=== PATIENT | female | born 1970 | race Caucasian/White ===

== ENCOUNTER → 2018-10-20 11:04 | Outpatient (CLI) | payer OTHER, SELFPAY ==
--- NOTE | 2018-10-20 10:20 | EMB_PTH ---
PATIENT: JESUSITA LINDQUIST LOC: [facility] U#:[id number] AGE/SX: 55/F ROOM: RE10/20/[address]: Dr. Marissa Houser MD : 1970 BED: DIS: SPEC #: [id number] RECD: 10/20/18 12:40 STATUS: AMA DAVI #: [id number] LYNN: 10/20/18 10:[address]: Marissa Bailey DEPT: SURGICAL PATHOLOGY RECD BY: Rolando Burr Tissues: Endometrium, NOS Procedures: Surgery Specimen Level IV HEADER OPERATION: Endometrial biopsy PRE-OP DIAGNOSIS: N92.0 Pap 10/20/18, LMP 10/04/18 TISSUE SUBMITTED: Endometrial biopsy MICROSCOPIC DIAGNOSIS Endometrium, biopsy: Disordered proliferative endometrium. AM:rg 10/21/18 MICROSCOPIC DESCRIPTION Slides are reviewed. GROSS DESCRIPTION Received is one container labeled with the patient's name and not further designated. The specimen consists of multiple irregular and elongated fragments of dark red-bailey soft tissue that in aggregate measure 2.5 x 2 x 0.2 cm. The specimen is totally submitted in one cassette. / AM:kike 10/20/18 TC:5 [facility]: [id number]
[2018-10-20 12:55] LABS: Hematocrit 35.3 % (37-47); Mean Corp Hgb Conc 28.3 g/gl (32-36); Mean Corpuscular Hgb 24.2 pg (27.0-32.0); Mean Corpuscular Volume 85.3 fL (81-99); Mean Platelet Vol. 10.2 fl (6.2-12.0); Platelet Count 355 K/mm3 (150-450); RBC Distribution Width CV 21.9 % (11.6-14.6); RBC Distribution Width SD 66.4 fl (35.1-43.9); Red Blood Count 4.14 M/mm3 (4.2-5.4); White Blood Count 7.4 K/mm3 (4.4-11.0)
[2018-10-20 13:58] LABS: Scan Indicated on CBC? Y/N YES- FLAGS NOTED
[2018-10-22 12:05] LABS: HPV APTIMA, High Risk Negative (Negative)
== END ==
PROVIDERS: Visit Provider Obstetrics & Gynecology
DX: Z12.4 Encounter for screening for malignant neoplasm of cervix (principal); N92.0 Excessive and frequent menstruation with regular cycle
CPT/HCPCS: 36415; 85027; 87624; 88175; 88305; G0145

== ENCOUNTER 2018-12-11 13:49 | Day surgery (SDC) | payer OTHER, SELFPAY ==
[2018-12-09 17:36] LABS: Hematocrit 33.5 % (37-47); Hemoglobin 10.5 g/dl (12.0-15.0); Mean Corp Hgb Conc 31.3 g/gl (32-36); Mean Corpuscular Hgb 28.1 pg (27.0-32.0); Mean Corpuscular Volume 89.6 fL (81-99); Mean Platelet Vol. 9.5 fl (6.2-12.0); Platelet Count 356 K/mm3 (150-450); RBC Distribution Width CV 14.9 % (11.6-14.6); RBC Distribution Width SD 46.6 fl (35.1-43.9); Red Blood Count 3.74 M/mm3 (4.2-5.4)
[2018-12-09 17:37] LABS: Scan Indicated on CBC? Y/N NO
[2018-12-09 17:44] LABS: Prothrombin Time (Protime)PT. 13.4 SECONDS (11.7-14.9)
[2018-12-09 17:45] LABS: Partial Thromboplast Time 31.6 Seconds (24.1-36.2)
[2018-12-11] VITALS (7 sets, daily range): BP systolic 135–142; BP diastolic 43–79; PULSE 67–97; RESP 16–18; TEMP 36.8–37.5; O2SAT 98–100; BMI 35.1
--- NOTE | 2018-12-11 | EMB_PTH ---
PATIENT: JESUSITA LINDQUIST LOC: [facility] U#:[id number] AGE/SX: 48/F ROOM: RE12/11/[address]: Dr. Marissa Houser MD : 1970 BED: DIS: 12/11/2018 SPEC #: [id number] RECD: 12/12/18 09:07 STATUS: AMA DAVI #: [id number] LYNN: 12/11/18 00:[address]: Marissa Bailey DEPT: SURGICAL PATHOLOGY RECD BY: Kleber Ramirez ENTERED: 12/12/18 09:07 SP TYPE: ENDOM BX/C LINDSEY DR: No Primary Care Phys Tissues: Endometrium, NOS Procedures: Surgery Specimen Level IV HEADER OPERATION: Hysteroscopy, D & C, Symphion and hydrothermal ablation PRE-OP DIAGNOSIS: Excessive and frequent menstruation with regular cycle; hypertrophy of uterus and secondary dysmenorrhea TISSUE SUBMITTED: Uterine polyps and fibroids and endometrial curettings MICROSCOPIC DIAGNOSIS Uterine polyps and fibroids and endometrial curettings: Mildly disordered proliferative endometrium. Fragments of myometrium. Mild chronic endometritis. Fragments of benign ecto- and endocervical mucosa with chronic inflammation and squamous metaplasia. AYSHA:kike 12/15/18 MICROSCOPIC DESCRIPTION Slides are reviewed. GROSS DESCRIPTION Received in fixative is one container labeled with the patient's name and designated uterine polyps and fibroids and endometrial curettings. The specimen consists of multiple fragments of hemorrhagic soft tissue mixed with blood clot that in aggregate measure 7.5 x 3 x 0.3 cm. The entire specimen is submitted in three cassettes. / AYSHA:kike 12/12/18 TC:5 CPT: 02483
--- NOTE | 2018-12-11 00:13 | HP.PCM_ITS ---
History and Physical Date of Admission: 12/11/18 HISTORY OF PRESENT ILLNESS: On 12/09/2018, Ramya Hughes, a 48 year old female 2 0 1 0 2, presented for: -- Pre-Op -- Ramya is here today for her pre op appointment. Patient is scheduled for HS D&C ablation 12/11/2018. Patient states that she has received her PAT phone call from [facility]. Patient is planning to have labs done today after appointment in this office. Patient states that she has had menses since last appointment this cycle did last longer the previous menses. Consents reviewed with patient and signed. jlb as above. hx menorrhagia with iron deficiency anemia scheduled for hysteroscopy, dilation and curettage with endometrial ablation. shm ALLERGIES: Demerol, Rash, itching MEDICATIONS HISTORY: REVIEW OF SYSTEMS: GENERAL - Denies fever, or chills SKIN - Denies skin changes EYES - wears eye glasses and sometimes EARS - Denies difficulty hearing NOSE - Denies nasal congestion or bleeding MOUTH - Denies sore throat or difficulty swallowing NECK - Denies pain or swelling RESPIRATORY - Denies shortness of breath or wheezing CARDIOVASCULAR - Denies palpitations or chest pain GASTROINTESTINAL - Denies nausea, vomiting, diarrhea, constipation GENITOURINARY - Denies dysuria, frequency of urination, incontinence of urine MUSCULOSKELETAL - Denies joint or muscle pain NEUROLOGICAL - Denies localized numbness or weakness PSYCHIATRIC - Denies depression or anxiety ENDOCRINE - Denies heat or cold intolerance, weight loss or gain HEMATO-IMMUNOLOGIC - Denies excesive bleeding with cuts PAST HISTORY: Breast/Ovarian/Colon Cancers - adopted Infections - Chicken pox Illnesses - anemia, heart murmur Accidents - None History of Abnormal PAPS - Denies Hospitalizations - Childbirth and see surgery last pap approximately 2001; SURGICAL HISTORY: 1. 1989 2. repeat with tubal 1991 3. termination of MENSTRUAL HISTORY: LMP Known?- DefiniteAmount/Duration - 6-7 days, Regularity - Regular, Frequency - monthly days, LMP - 11/30/18, Age Onset Menarche - 11 PAST PREGNANCIES: Total Pregnancies - 3; Full Term Pregnancies - 2; Premature - 0; Abortions, Induced - 1; Abortions, Spontaneous - 0; Ectopics - 0; Multiple Births - 0; Living Children - 2 FAMILY HISTORY: MaternalGrandparent - Type 2 Diabetes; MaternalGrandparent - Anemia; SOCIAL HISTORY: Alcohol Use - drinks occasionally Smoking - used to smoke but quit and in 1990 Diet - no special diet Lifestyle - Exercise - none Seat Belt Use - always Employer - [employer] Illicit Drug Use - denies use of street drugs Sexual Activity - Residence - owns a home Spouse-Sig Other Name - Kevyn Spouse-Sig Other Occupation - self employed Children Name(s) - Sandhya Godfrey Control - Prior Tubal BP- 128/84 Sitting, Right arm, large cuff Temp- 98.2 Taken Orally Weight- 200.00 lbs Height- 62.75 inch BMI:35.79 CONSTITUTIONAL - NAD, well nourished, and well developed SKIN - No rash, lesions, or ulcers HEENT - normocephalic, atraumatic, sclerae anicteric LUNGS - normal respiratory rate and rhythm CARDIAC - Regular rate and rhythm without rubs, murmurs, or gallops ABDOMEN - Without hepatosplenomegaly, distention, masses, rebound, or guarding; normal bowel sounds; no hernias EXTREMITIES - No edema or calf tenderness NEUROLOGICAL - normal gait, normal balance, normal motor PSYCHIATRIC - A and O to time, place, person, mood and affect Laboratory Tests 12/09/18 12/09/18 12/09/18 Range/Units 17:23 17:23 17:23 WBC 7.0 (4.4-11.0) K/mm3 RBC 3.74 L (4.2-5.4) M/mm3 Hgb 10.5 L (12.0-15.0) g/dl Hct 33.5 L (37-47) % MCV 89.6 (81-99) fL MCH 28.1 (27.0-32.0) pg MCHC 31.3 L (32-36) g/gl RDW 14.9 H (11.6-14.6) % RDW Differential 46.6 H (35.1-43.9) fl Plt Count 356 (150-450) K/mm3 MPV 9.5 (6.2-12.0) fl PT 13.4 (11.7-14.9) SECONDS INR 1.0 APTT 31.6 (24.1-36.2) Seconds Blood Type O NEGATIVE Antibody Screen NEGATIVE ULTRASOUND 2/4/19 UTERUS: 12.1 x 7.2 x 5.6 cm. There is a 3.8 x 3 x 3.7 cm cervical fibroid. There is a 5.9 x 4.6 x 6 cm right pedunculated fibroid. The uterus is extremely difficult to visualize due to the size. ENDOMETRIAL ECHO: 1.2 cm and appears to contain a polyp measuring 1.9 x .7 x 1.6 cm. RIGHT OVARY: 3.2 x 2.7 x 1.7 cm and is only seen abdominally. LEFT OVARY: 3.8 x 3.7 x 2.3 cm and can only be seen abdominally. FREE FLUID: There is an area of free fluid measuring 5.5 cm that is located between the uterus and bladder. ASSESSMENT: PLAN BY DIAGNOSIS: 1. Excessive And Frequent Menstruation With Regular Cycle, Hypertrophy Of Uterus and Secondary Dysmenorrhea Pelvic US with fibroid uterus, likely uterine polyp EMB path benign disordered proliferative endometrium Plan for hysteroscopy, dilation and curettage, polypectomy as indicated and endometrial ablation Reviewed procedure, how performed, surgical risks/benefits/indications/alternatives. Also reviewed amenorrhea and failure rates following endometrial ablation. Will determine HTA vs. Donita ablation pending hysteroscopic cavity assessment. Preop packet and body wash instructions. NPO @ [place] Prior to procedure Consents signed.
[2018-12-11 14:17] LABS: Internal QC Validated? YES +Cl - CLEAR BKGD; Pregnancy, Urine Negative Negative
--- NOTE | 2018-12-11 18:56 | DCINST_ITS ---
Discharge Diet: No Restrictions Discharge Activity: Return to Normal Activity, May not drive while taking narcotic pain medications., May Shower, - - No tub bath for 2 weeks May resume sexual activity in: - - 2-4 weeks Call your doctor if you observe: Fever of 101 or Higher, Inability to urinate, Inability to have a bowel movement, Using more than one pad per hour, Shortness of breath, Chest pain, Calf discomfort, Uncontrolled pain Allergies/Adverse Reactions: Allergies meperidine [From Demerol] Allergy (Verified 12/01/18 11:07) Itching Medications to take at Discharge Ascorbic Acid [Vitamin C] 500 mg PO QHS 12/01/18 Ferrous Sulfate, Dried [Iron] 130 mg PO QHS 12/01/18 Vitamin B Complex 1 each PO QHS 12/01/18 Ibuprofen 600 mg PO TID PRN #30 tablet 12/11/18 Oxycodone [Oxyir] 5 mg PO Q6H PRN PRN 7 Days #4 tablet 12/11/18 The following prescriptions were given: Oxycodone [Oxyir] 5 mg PO Q6H PRN PRN 7 Days #4 tablet PRN Reason: Severe Pain (6-10/10) Ibuprofen 600 mg PO TID PRN #30 tablet PRN Reason: Pain Primary Care Physician: Care Physician,No Primary [Primary Care Provider] - Test Results: Test results from this visit will be discussed in further detail at your follow- up appointment, if applicable. Please Follow Up With: Marissa Acosta MD When: 1-2 weeks
--- NOTE | 2018-12-13 00:38 | PCM.OPRPT ---
Problem List (1) Excessive and frequent menstruation with irregular cycle Status: Acute (2) Chronic blood loss anemia Status: Chronic Comment: iron deficiency due to menometrorrhagia Report of Operation Date of Procedure: 12/11/18 Pre-Operative Diagnosis: Excessive and frequent menstruation with irregular cycle Post-Operative Diagnosis: Excessive and frequent menstruation with irregular cycle Surgery/Procedure Performed:: Hysteroscopy, Dilation and curettage, hysteroscopic myomectomy, hydrothermal endometrial ablation Description of Surgical Findings:: Anterior submucosal fibroid, endometrial polyp present Type of Anesthesia:: Local MAC Anesthesiologist: Lu Ansari Specimen's removed: endometrial curettings Estimated Blood Loss (mL): 20 Fluids Replaced: 600 Description of Procedure: Indications: 48yo perimenopausal female with history of menometrorrhagia and iron deficiency anemia. She had a benign endometrial biopsy. Following counseling she opted to proceed with hysteroscopic myomectomy and/or polypectomy as indicated, dilation and curettage, hydrothermal endometrial ablation. Risks, benefits, indications and procedural alternatives were reviewed. Procedure: The patient was taken to the operating room and sign in performed. The patient was placed into dorsal supine position and induced under MAC. She was repositioned into dorsal lithotomy and examination under anesthesia was performed. The perineum was prepped and draped in sterile fashion. Time out done. A bivalved speculum was placed vaginally and the cervix grasped at the anterior cervical lip using a single tooth tenaculum. The cervix was dilated. Hysteroscopy was performed using the Symphion scope demonstrating an endometrial polyp as well as anterior Type 1 uterine fibroid. The Symphion resectoscope was utilized to perform polypectomy and myomectomy was initiated - however, due to equipment failure - hysteroscopic myomectomy was discontinued. Sharp curettage was subsequently performed for additional endometrial sampling. Hydrothermal ablation device was used to perform hysteroscopy and ablative cycle performed after confirming adequate seal with no leakage of fluid. There appeared to be global blanching of the endometrial cavity. Following the ablative cycle and cool down the hysteroscope was removed and the procedure complete. The tenaculum and speculum were removed from the cervix. The tenaculum site was hemostatic. The patient was repositioned into dorsal supine position, awakened and transferred to the recovery room without complication. Sponge counts were correct x 2. - Complications None - Admit VTE Documentation VTE Present on Admission: No VTE Mechan Device Prophylaxis: SCD's VTE Pharm Prophylaxis ordered?: No
== END 2018-12-11 20:05 | disposition home or self-care (01) ==
LOC: SDC 13:49 → AC 13:51
PROVIDERS: Referring Provider Obstetrics & Gynecology; Visit Provider Obstetrics & Gynecology
PROC: 0U5B8ZZ Destruction of Endometrium, Via Natural or Artificial Opening Endoscopic (ICD-10-PCS; CPT 58558; principal; 2018-12-11 15:10)
DX: N84.0 Polyp of corpus uteri (principal); N71.1 Chronic inflammatory disease of uterus; N92.1 Excessive and frequent menstruation with irregular cycle; N94.5 Secondary dysmenorrhea; D50.0 Iron deficiency anemia secondary to blood loss (chronic); Z87.891 Personal history of nicotine dependence; Z79.899 Other long term (current) drug therapy
CPT/HCPCS: 00952; 58563; 36415; 81025; 85027; 85610; 85730; 86850; 86900; 88305; J7120; J2405

== ENCOUNTER → 2019-04-08 11:32 | Outpatient (CLI) | payer OTHER, SELFPAY ==
[2018-12-11 14:23] VITALS: BMI 35.1
[2019-04-08 13:45] LABS: Hematocrit 38.7 % (37-47); Hemoglobin 12.2 g/dL (12.0-15.0); Mean Corp Hgb Conc 31.5 g/dL (32-36); Mean Corpuscular Hgb 26.3 pg (27.0-32.0); Mean Corpuscular Volume 83.4 fL (81-99); Mean Platelet Vol. 10.7 fl (6.2-12.0); Platelet Count 331 K/mm3 (150-450); RBC Distribution Width CV 13.4 % (11.6-14.6); RBC Distribution Width SD 40.5 fl (35.1-43.9); Red Blood Count 4.64 M/mm3 (4.2-5.4)
== END ==
PROVIDERS: Visit Provider Obstetrics & Gynecology
DX: D64.9 Anemia, unspecified (principal)
CPT/HCPCS: 85027

== ENCOUNTER → 2019-04-13 14:58 | Outpatient (CLI) | payer OTHER, SELFPAY ==
[2018-12-11 14:23] VITALS: BMI 35.1
--- NOTE | 2019-04-13 15:00 | BI_ITS ---
MAMMOGRAPHY - BILATERAL SCREENING REASON FOR EXAM: Female, 48 years old. Routine annual screening examination. PERTINENT HISTORY: Non-contributory. TECHNIQUE: Digital bilateral breast nikia (3D mammographic acquisition) in the CC and MLO projections. 2-D mediolateral oblique (MLO) and craniocaudad (CC) views of both breasts were obtained. CAD: Full Field Digital Mammography with Computer Added Detection was performed. COMPARISON: None. Baseline examination. FINDINGS: Breast Composition: The breasts are heterogeneously dense, which may obscure small masses. There are no dominant masses or suspicious calcifications. No other significant abnormalities are identified. BI/SCREEN MAMM (CAD) W/NIKIA BILAT IMPRESSION: Negative screening mammogram. Yearly followup mammogram recommended. (A) ASSESSMENT CATEGORY: BIRADS Category 1: Negative. A letter regarding these results will be sent to the patient by the facility within 30 days. Approximately 10% of breast cancers are not detected by mammography. A normal mammogram should not delay biopsy of a clinically suspicious abnormality. [id number] Electronically Signed: Brian Melara, at 8:22 EDT , Service support ,
== END ==
PROVIDERS: Referring Provider Obstetrics & Gynecology; Visit Provider Obstetrics & Gynecology
DX: Z12.31 Encounter for screening mammogram for malignant neoplasm of breast (principal)
CPT/HCPCS: 77063; 77067

== ENCOUNTER → 2019-05-26 15:00 | Outpatient (CLI) | payer OTHER, SELFPAY ==
[2018-12-11 14:23] VITALS: BMI 35.1
[2019-05-26 16:07] LABS: Hemoglobin 11.3 g/dL (12.0-15.0); Mean Corp Hgb Conc 30.5 g/dL (32-36); Mean Corpuscular Hgb 24.3 pg (27.0-32.0); Mean Corpuscular Volume 79.6 fL (81-99); Mean Platelet Vol. 10.7 fl (6.2-12.0); Platelet Count 403 K/mm3 (150-450); RBC Distribution Width CV 13.8 % (11.6-14.6); RBC Distribution Width SD 39.6 fl (35.1-43.9); Red Blood Count 4.65 M/mm3 (4.2-5.4); White Blood Count 8.2 K/mm3 (4.4-11.0)
[2019-05-26 16:23] LABS: International Normalized Ratio 1.1
== END ==
PROVIDERS: Visit Provider Obstetrics & Gynecology
DX: N92.0 Excessive and frequent menstruation with regular cycle (principal)
CPT/HCPCS: 36415; 85027; 85610; 85730

== ENCOUNTER 2019-05-30 10:47 | Observation (INO) | payer OTHER, SELFPAY ==
[2018-12-11 14:23] VITALS: BMI 35.1
[2019-05-30] VITALS (13 sets, daily range): BP systolic 116–145; BP diastolic 34–94; PULSE 84–121; RESP 12–24; TEMP 36.8–37.4; O2SAT 97–100; BMI 36.3; BMI 37.2; BMI 37.3
[2019-05-30 11:34] LABS: Absolute Lymphocyte Count 1.13 X10^3/uL (0.83-4.51); Absolute Neutrophil Count 8.2 X10^3/uL (2.0-7.7); Basophil# 0.04 X10^3/uL; Basophil% 0.4 % (0-1); Eosinophil# 0.02 X10^3/uL; Eosinophils% 0.2 % (0-5); Hematocrit 20.9 % (37-47); Hemoglobin 6.3 g/dL (12.0-15.0); Lymphocyte # 1.13 X10^3/ul (4.0); Lymphocyte % 11.2 % (19-41); Mean Corp Hgb Conc 30.1 g/dL (32-36); Mean Corpuscular Hgb 24.6 pg (27.0-32.0); Mean Corpuscular Volume 81.6 fL (81-99); Monocyte# 0.67 X10^3/uL; Monocyte% 6.7 % (0-10); NRBC Flagged by Analyzer 0 % (0-5); Neutrophil # 8.15 X10^3/uL (2.7-7.7); Platelet Count 378 K/mm3 (150-450); RBC Distribution Width CV 14.4 % (11.6-14.6); RBC Distribution Width SD 41.9 fl (35.1-43.9); Red Blood Count 2.56 M/mm3 (4.2-5.4); White Blood Count 10.1 K/mm3 (4.4-11.0)
[2019-05-30 11:41] LABS: International Normalized Ratio 1.1; Prothrombin Time (Protime)PT. 14.2 SECONDS (11.7-14.9)
[2019-05-30 11:42] LABS: Partial Thromboplast Time 25.3 Seconds (24.1-36.2)
[2019-05-30 11:46] LABS: Anion Gap 8 (5-15); BUN 9 mg/dL (7-18); BUN/Creat Ratio 15.7 RATIO (10-20); Calcium,Total 8.4 mg/dL (8.5-10.1); Chloride 105 mmol/L (98-107); Creatinine, Serum 0.57 mg/dL (0.55-1.02); EST Glomerular Filtration Rate 119 mL/min (>60); Est Glom Filt Rate - Afr Amer 144 mL/min (>60); Estimated Creatinine Clearance 93.39 ml/min; Glucose 90 mg/dL (74-106); Potassium 3.9 mmol/L (3.5-5.1); Sodium Level 135 mmol/L (136-145)
--- NOTE | 2019-05-30 11:48 | NURSING ---
DR EASTON BRUNNER PAGED
--- NOTE | 2019-05-30 11:49 | ED.VIS.GEN ---
History of Present Illness Informant: Patient, Significant Other Onset: Weeks - 1 week Context: Gradual Onset Timing: Continuous Quality: heavy bleeding with clots Location: vaginal Current Severity: Severe Maximum Severity: Severe Worsened by: nothing Relieved by: nothing Associated Symptoms: lightheadedness Narrative: 49 year old female with a history of heavy menstrual bleeding presents to the emergency department with vaginal bleeding. Approximately 6 months ago the patient had a D&C done for heavy bleeding. She has been doing well since that procedure up until the past week. A week ago today she thought that she finished her menstrual cycle. However the next day and until now she has had heavy bleeding. She describes heavy periods of flow with clots every 2-3 hours but not continued bleeding. She saw her ASSOCIATE CHIEF NURSE earlier this week. She was placed on a hormone pill. She has had continued bleeding. She now feels lightheaded and dizzy. She recently restarted taking iron just this past week. She has never had a blood transfusion. She is not having any significant pain or other symptoms of bleeding. She is not on blood thinners. Prior similar symptoms: Yes Recent Illness/Hospitalization: No <Bart Saucedo - Last Filed: 05/30/19 14:07> <Elias Ayers - Last Filed: 05/30/19 14:45> Chief Complaint: Vag Bleeding Past Medical History Prior records reviewed: Yes Past Medical History: - - dysmenorrhea Surgical History: - - D&C Lives: With Family Smoking Status: Former smoker <Bart Saucedo - Last Filed: 05/30/19 14:07> <Elias Ayers - Last Filed: 05/30/19 14:45> - Allergies and Home Meds Allergies/Adverse Reactions: Allergies meperidine [From Demerol] Allergy (Verified 05/30/19 10:48) Itching Review of Systems All systems negative except as indicated Genitourinary: Reports: - - vaginal bleeding <Bart Saucedo - Last Filed: 05/30/19 14:07> Physical Exam Vital Signs/Narrative: Vital Signs Temp Pulse Resp BP Pulse Ox 05/30/19 10:49 98.3 F 121 H 24 H 145/94 H 100 Inital Vital Signs reviewed: Yes General: Well nourished, Well developed, No Acute Distress Head: Normocephalic, Atraumatic Eyes: Perrl, EOMI ENT: Moist mucous membranes Neck: Supple, Nontender, No lymphadenopathy, No JVD Cardiovascular: Regular rate, Regular rhythm Respiratory: No distress, CTA bilaterally, Chest nontender Abdomen: Soft, Nontender, Nondistended, Normal bowel sounds, No masses Back: Nontender, Normal Inspection Extremities: Nontender, No edema Skin: Normal color, No rash Neurological: Alert, Oriented x3 Psychological: Normal affect <Bart Saucedo - Last Filed: 05/30/19 14:07> Vital Signs/Narrative: Vital Signs Temp Pulse Resp BP Pulse Ox 05/30/19 13:22 98.5 F 96 16 129/67 H 100 05/30/19 13:18 98.6 F 96 14 129/67 H 100 05/30/19 13:03 98.6 F 103 H 12 135/57 H 100 05/30/19 10:49 98.3 F 121 H 24 H 145/94 H 100 <Elias Ayers - Last Filed: 05/30/19 14:45> Diagnostic/Tx/Re-eval - Medical Decision Making Patient is tachycardic on arrival but her blood pressure is stable. Her hemoglobin returns at 6. Patient is crossmatched for 2 units of packed red blood cells. I spoke with Dr. Judd who is the patient's ASSOCIATE CHIEF NURSE she came into the emergency department to evaluate the patient. She will take the patient to the operating room. Prior to going to the operating room she did request we order a formal ultrasound which was done. It is not yet been read. The patient will be taken to the operating room. She remains hemodynamically stable. She is receiving blood transfusion at this time and is updated on findings - Critical Care Time Critical care time (excluding procedures): 30-74 minutes <Bart Saucedo - Last Filed: 05/30/19 14:07> - Medical Decision Making The patient in conjunction with the physician pediatric dental assistant. She has vaginal bleeding history of ablation and myomectomy. She tried progestin that her doctor prescribed but her bleeding is worsening. She is now having lightheadedness and other symptoms of anemia. Her hemoglobin was 6. We ordered blood and contacted ASSOCIATE CHIEF NURSE. Patient will go to the OR for further care. <Elias Ayers - Last Filed: 05/30/19 14:45> ED Disposition <Bart Saucedo - Last Filed: 05/30/19 14:07> <Elias Ayers - Last Filed: 05/30/19 14:45> - Plan for ED Patient: Disposition: Acute Care Hospital [facility] Diagnosis: Acute blood loss anemia, Excessive and frequent menstruation with irregular cycle
--- NOTE | 2019-05-30 12:23 | US_ITS ---
STUDY: ULTRASOUND OF THE FEMALE PELVIS - COMPLETE REASON FOR EXAM: Female, 49 years old. Post ablation bleeding LMP: TECHNIQUE: Transabdominal and Transvaginal TECHNICAL QUALITY: Adequate. COMPARISON: None. FINDINGS: The uterus is anteverted and is in a midline position. The uterus measures 12.12 x 5.7 cm. Normal uterine cervix. There is limited visualization of the endometrium on this study. The fundal endometrium is vaguely visualized. It measures 8.1 mm. This is measured on image #48 sagittal view There is a lower uterine segment or cervical mass or fibroid mass crosses the midline and may be within the endometrium or pushing into the endometrium. The partially visualized endometrium appears to be partially fluid distended. There are 4 measured fibroids. One in the anterior fundus measuring 2.6 x 13.2 x 2.4 cm. There is one in the exophytic superior fundus measuring 1.3 x 1.4 x 0.9 cm. There is one within the mid fundus measuring 2.3 x 2.5 x 2.1 cm. There is a lower uterine segment mass measuring 4.0 x 4.0 x 2.9 cm. I.U.D. - The patient does not have an I.U.D. The right ovary is visualized. The right ovary measures 2.6 x 2.7 x 1.7 cm. There is no right ovarian cyst or ovarian mass. There is no visualized right adnexal mass or complex lesion. There is normal arterial and normal venous vascularity. The left ovary is visualized. The left ovary measures 3.2 x 2.2 x 2.1 cm. There is no left ovarian cyst or ovarian mass. There is no visualized left adnexal mass or complex lesion. There is normal arterial and normal venous vascularity. There is no fluid in the cul-de-sac. The bladder appears grossly unremarkable on the transabdominal images. Polycystic ovary disease: No. US/Transvaginal Non- IMPRESSION: There are multiple fibroids the largest of which appears to cross the midline or position to the base of the uterus in the lower uterine segment. There is partial visualization of the endometrium on this study and what is seen appears at the fundus within normal limits and partially fluid distended possibly partially obstructed towards the lower uterine segment based on the positioning of the low uterine segment/cervical mass and/or fibroid. Recommend PAD MAKING MACHINE OPERATOR consult when appropriate. Electronically Signed: Elizabeth Hsieh MD at 16:34 EDT Tel , Service support ,
--- NOTE | 2019-05-30 13:00 | PCM.HP.STD ---
Problem List (1) Excessive and frequent menstruation with irregular cycle Status: Acute History of Present Illness Date of Admission: 05/30/19 The patient is a 49 year old F 2 para 2 with hx uterine fibroid and menorrhagia presents with heavy vaginal bleeding for 1 week. She was seen in the office earlier this week and started on Aygestin taper with some improvement of bleeding initially however bleeding persisted. She reports lower abdominal pain, nausea. No emesis, fever, chills. Lightheadedness with standing. She is passing clots. Past Medical History Medical History: Medical History (Last Updated 05/30/19 @ 14:53 by Marissa Acosta MD) Anemia D64.9 Heart murmur R01.1 Allergies meperidine [From Demerol] Allergy (Verified 05/30/19 10:48) Itching Home Medications: Ambulatory Orders Medication Instructions Recorded Ferrous Sulfate, Dried [Iron] 130 mg PO QHS 12/01/18 Vitamin B Complex 1 each PO QHS 12/01/18 Ibuprofen 600 mg PO TID PRN #30 tablet 12/11/18 Norethindrone [Aygestin] 5 mg PO DAILY 05/30/19 Surgical History: Surgical History (Last Updated 05/30/19 @ 14:46 by Marissa Acosta MD) H/O tubal ligation Z98.51 History of endometrial ablation Z98.890 Previous section Z98.891 x 2 Surgical History: - Psychiatric History: 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 Denies: Chills, Fever Cardiovascular: Denies: Chest Pain, Palpitations Gastrointestinal: Reports: Abdominal Pain, Constipation, Nausea. Denies: Vomiting Gynecological: Reports: Vaginal bleeding VTE Information - Inpt Only VTE Present on Admission: No VTE Mechan Device Prophylaxis: SCD's VTE Pharm Prophylaxis ordered?: No Patient Problems: Active and Suspected Problems Excessive and frequent menstruation with irregular cycle (Acute) Acute blood loss anemia (Acute) - Physical Exam General: Alert, Oriented x3, Cooperative, No apparent distress HEENT: Atraumatic, Normocephalic Lungs: Normal air movement Cardiovascular: Regular Rhythm, Normal S1, Normal S2, Tachycardic Abdomen: Soft, Non Tender, Non-Distended Extremities: No edema, No Calf Tenderness Neurological: Neuro grossly intact Psych/Mental Status: Normal Affect, Appropriate, Alert and oriented to time, place, person, mood and affect Comment: Uterus 14w size, cervix mildly dilated with palpable mass at apical cervix Vital Signs Temp Pulse Resp BP Pulse Ox 98.3 F 121 H 24 H 145/94 H 100 05/30/19 10:49 05/30/19 10:49 05/30/19 10:49 05/30/19 10:49 05/30/19 10:49 Oxygen Delivery Method Room Air Weight: 90.265 kg Body Mass Index (BMI) 36.3 Laboratory Tests Past 24 Hrs 05/30/19 05/30/19 05/30/19 11:25 11:25 11:25 WBC 10.1 RBC 2.56 L Hgb 6.3 L Hct 20.9 L MCV 81.6 MCH 24.6 L MCHC 30.1 L RDW Std Deviation 41.9 RDW Coeff of Diogenes 14.4 Plt Count 378 MPV 10.0 Immature Gran % (Auto) 0.500 Neut % (Auto) 81.0 H Lymph % (Auto) 11.2 L [place] % (Auto) 6.7 Eos % (Auto) 0.2 Baso % (Auto) 0.4 Absolute Neuts (auto) 8.2 H Absolute Lymphs (auto) 1.13 Nucleated RBC % 0 PT 14.2 INR 1.1 APTT 25.3 Sodium 135 L Potassium 3.9 Chloride 105 Carbon Dioxide 22.0 Anion Gap 8 BUN 9 Creatinine 0.57 Estim Creat Clear Calc 93.39 Est GFR (MDRD) Af Amer 144 Est GFR (MDRD) Non-Af 119 BUN/Creatinine Ratio 15.7 Glucose 90 Calcium 8.4 L Blood Type Antibody Screen Crossmatch 05/30/19 05/30/19 11:25 11:25 WBC RBC Hgb Hct MCV MCH MCHC RDW Std Deviation RDW Coeff of Diogenes Plt Count MPV Immature Gran % (Auto) Neut % (Auto) Lymph % (Auto) [place] % (Auto) Eos % (Auto) Baso % (Auto) Absolute Neuts (auto) Absolute Lymphs (auto) Nucleated RBC % PT INR APTT Sodium Potassium Chloride Carbon Dioxide Anion Gap BUN Creatinine Estim Creat Clear Calc Est GFR (MDRD) Af Amer Est GFR (MDRD) Non-Af BUN/Creatinine Ratio Glucose Calcium Blood Type O NEGATIVE Antibody Screen NEGATIVE Crossmatch See Detail Assessment/Plan All Active Problems Excessive and frequent menstruation with irregular cycle (Acute) Acute blood loss anemia (Acute) 49yo with likely prolapsing uterine fibroid, acute blood loss anemia, vaginal bleeding -NPO -Transfuse 2U PRBC -Pelvic US ordered for surgical planning -Not candidate for high dose E therapy given hypertension. -Will require hysteroscopic myomectomy, D&C, potential for hysterectomy. Procedural indications, benefits, alternatives reviewed, as well risks including, but not limited to bleeding, uterine perforation, infection, injury to abdominal organs or vessels, intrauterine and/or abdominal scarring, need for further surgery as indicated.
--- NOTE | 2019-05-30 13:13 | NURSING ---
Felipe BRUNNER ANEMIA, MENORRHAGIA
[2019-05-30 13:27] LABS: Internal QC Validated? YES +Cl - CLEAR BKGD; Pregnancy, Urine Negative Negative
--- NOTE | 2019-05-30 13:29 | NURSING ---
DR EASTON BRUNNER IN ER
--- NOTE | 2019-05-30 14:00 | HYST_PTH ---
PATIENT: JESUSITA LINDQUIST LOC: [facility]3 U#:[id number] AGE/SX: 49/F ROOM: MS315 RE05/30/[address]: Dr. Marissa Houser MD : [id number] BED: 1 DIS: 05/31/2019 SPEC #: [id number] RECD: 06/01/19 09:03 STATUS: AMA RERadha #: [id number] LYNN: 05/30/19 14:[address]: Marissa Bailey DEPT: SURGICAL PATHOLOGY RECD BY: Rolando Burr ENTERED: 06/01/19 11:09 SP TYPE: HYSTERECT OTHR DR: Dania Primary Care Phys Tissues: A - Uterus, NOS B - Uterus, NOS Procedures: Surgery Specimen Level V HEADER OPERATION: Hysteroscopy, D & C, myomectomy PRE-OP DIAGNOSIS: Excessive and frequent menstruation with irregular cycle; acute blood loss anemia; prolapsed uterine fibroid TISSUE SUBMITTED: A - Uterine myoma, B - Uterus, cervix, bilateral fallopian tubes MICROSCOPIC DIAGNOSIS A. Uterine myoma, biopsy: Fragments of leiomyoma with degenerative change. Fragments of secretory endometrium. B. Uterus, hysterectomy: Cervix - squamous metaplasia and mild chronic inflammation. Endometrial polyp - benign endometrial polyp with secretory change and vascular congestion and intraparenchymal hemorrhage. Endometrium - secretory endometrium. Myometrium - leiomyomas and focal superficial adenomyosis. Right fallopian tube - hemosalpinx. Left fallopian tube - no pathologic change. AM:kike 06/02/19 MICROSCOPIC DESCRIPTION Slides are reviewed. GROSS DESCRIPTION A - Received in fixative is one container labeled with the patient's name and designated uterine myoma. The specimen consists of multiple rubbery fragments of light bailey-white soft tissue that in aggregate measure 3 x 2.5 x 0.2 cm. The specimen is totally submitted in one cassette. B - Received in fixative is one container labeled with the patient's name and designated uterus. The specimen consists of five fragments. One fragment consists of a nodule of rubbery, white soft tissue measuring 1.5 cm in diameter. The second fragment consists of a detached fallopian tube measuring 3.5 x 0.8 cm and containing a fimbriated end. The third fragment consists of nondescript irregular pink-bailey soft tissue measuring 4 x 3.5 x 1 cm. The fourth fragment consists of a nodule of rubbery bailey-white soft tissue fragment measuring 4.5 cm in diameter and grossly resembling a leiomyoma. The fifth fragment consists of a uterus with attached right fallopian tube and cervix. The uterus with cervix measures 12.5 x 7 x 6.5 cm and weighs 214 gm. The uterus has been opened along one aspect. The endocervical canal measures 5 cm in length and is grossly unremarkable. The triangular endometrial cavity measures 4 x 3.5 cm. The velvety, light bailey endometrium measures up to 0.2 cm in thickness. The lower uterine segment/endocervix contains a dark bailey polyp measuring 3 x 1 x 0.2 cm. The myometrium measures 2.5 cm in average thickness and is distorted by multiple spherical rubbery nodules resembling leiomyomas ranging in size from <0.5 to 7 cm in greatest dimension. The nodules are intramural and subserosal in location. The right fallopian tube measures 7 cm in length and 0.8 cm in average diameter and is discontinuous in its mid portion consistent with previous tubal ligation. The detached free left fallopian tube has previously been described. Chief Analytics Officer sections are submitted in 12 cassettes as follows: 1?- anterior cervix, 2 - posterior cervix, 3 - endocervical/endometrial polyp, 4 & 5 - anterior uterine wall, 6?& 7 - posterior endometrial wall, 8 - largest myometrial mass, 9 - second largest myometrial mass, 10??third largest myometrial mass, 11 - right fallopian tube, 12 - left fallopian tube. / AM:kike 06/01/19 TC:1 CPT: 97509
[2019-05-30] MEDS: Lubricating Jelly 60 GM Tube 30 GM TOPICAL (15:30)
--- NOTE | 2019-05-30 16:38 | OP.PCM_ITS ---
Problem List (1) Excessive and frequent menstruation with irregular cycle Status: Acute (2) Uterine fibroid Status: Acute Qualifiers: Uterine leiomyoma location: submucous Qualified Code(s): D25.0 - Submucous leiomyoma of uterus (3) Acute blood loss anemia Status: Acute Report of Operation Date of Procedure: 05/30/19 Pre-Operative Diagnosis: Acute blood loss anemia, prolapsing uterine fibroid Post-Operative Diagnosis: Acute blood loss anemia, prolapsing uterine fibroid Surgery/Procedure Performed:: Hysteroscopic myomectomy, dilation and curettage Description of Surgical Findings:: Type 1 and 2 uterine fibroid with calcifications Type of Anesthesia:: General Anesthesiologist: Lu Ansari Specimen's removed: fibroid Estimated Blood Loss (mL): 15 Fluids Replaced: 1000 ml Description of Procedure: Patient was taken to the operating room and sinus performed. She is placed in dorsal supine position and induced under MAC. She was then repositioned to dorsolithotomy. The perineum was prepped and draped in sterile fashion. Patient was placed in the high lithotomy. straight catheterization the bladder was performed. A bivalve speculum was placed into the vagina and the anterior cervical lip grasped using a single-tooth tenaculum. Paracervical block was placed using a total of 20 cc of 1% lidocaine with epinephrine 100,000 concentration. With subsequent improvement of bleeding noted as I proceeded with the procedure. The cervix was subsequently dilated and hysteroscopy was performed demonstrating an exophytic fibroid within the apical cervix and endometrial cavity. The base of the uterine fibroid was easily visualized and also placement of the Endoloop was unsuccessful. The cervix was subsequently dilated to 32 Micronesian using Gutiérrez dilators and hysteroscopy was performed with hysteroscopic myomectomy utilizing the Symphion system. Despite approximately 30 minutes of attempted myomectomy the fibroid remained a substantial and the base had not been fully transected. As the patient's bleeding had improved this portion of the procedure was aborted as it was clear it would require multiple partial myomectomy attempts. This portion of the procedure was completed. The patient was then placed into dorsal supine position. At this time, I scrubbed out and discussed findings with the patient's . Given her anemia and this is a second episode she has had of heavy bleeding resulting in hemoglobin of 6 I advised hysterectomy. Also discussed serial outp atient myomectomy as an alternative. I reviewed with patient's further procedural risks and benefits of each. He agreed it was best to proceed with hysterectomy. We will proceed with LAVH, bilateral salpingectomy with ovarian conservation. Please see separate operative report for hysterectomy details. - Complications None - Admit VTE Documentation VTE Present on Admission: No VTE Mechan Device Prophylaxis: SCD's VTE Pharm Prophylaxis ordered?: No
--- NOTE | 2019-05-30 19:56 | OP.PCM_ITS ---
Problem List (1) Excessive and frequent menstruation with irregular cycle Status: Acute (2) Uterine fibroid Status: Acute Qualifiers: Uterine leiomyoma location: submucous Qualified Code(s): D25.0 - Submucous leiomyoma of uterus (3) Acute blood loss anemia Status: Acute Report of Operation Date of Procedure: 05/30/19 Pre-Operative Diagnosis: 1. Acute blood loss anemia. 2. Multifibroid uterus. 3. prolapsing uterine fibroid Post-Operative Diagnosis: 1. Acute blood loss anemia. 2. fibroid uterus number. 3. prolapsing uterine fibroid Surgery/Procedure Performed:: LAVH. Left partial salpingectomy. Right salpingectomy Description of Surgical Findings:: Multifibroid uterus - 14w size and pedunculated fundal fibroid and few small broad ligament fibroids and prolapsing cervical fibroid Normal ovaries and tubes respiratory supervisor: Rachel Longo Type of Anesthesia:: General Anesthesiologist: Lu Ansari Specimen's removed: Fibroid uterus and cervix, right tube. Left distal tube Estimated Blood Loss (mL): 250 Fluids Replaced: 2L crystalloid and 1u prbc given during the preceding D&C and this lavh Description of Procedure: Patient was induced under general anesthesia and intubated. He was then placed into dorsal lithotomy and her arms tucked at her sides. The perineum and abdomen were prepped and draped in sterile fashion. Richardson catheter was placed into the bladder. And the patient was placed in the high lithotomy and a speculum placed to the vagina. The cervix was grasped the anterior cervical lip. An acorn cannula was placed and secured for uterine manipulation. Speculum was removed and patient placed in the low lithotomy attention turned to the abdomen. An inferior umbilical incision was made using the scalpel. Veress needle was placed with successful hanging drop test and no aspirate. The abdomen was insufflated to 15 mmHg. The Veress needle was removed and 5 mm port placed under laparoscopic guidance confirming entry into the abdominal cavity. The patient was then placed into Trendelenburg. Right and left lower quadrant incisions were made using the scalpel under transillumination and 5 mm ports were also placed at the site. A suprapubic incision was also made and a 5 mm port placed at the site. The uterus was notably enlarged approximately 14 weeks size with a pedunculated superior fibroid as well as small subserosal and broad ligament fibroids. It was evident the patient had had tubal ligation with tubal transection of the left tube. Due adhesion the left appendectomy was deferred. The uterine ovarian ligament and round ligament at the left were coagulated and cut using the Enseal device. The broad ligament was opened anteriorly and dissected bluntly and sharply with creation of the bladder flap. The uterine vessels were skeletonized and the posterior broad ligament was coagulated and cut. Attention was then turned to the right adnexa. The tubal fimbria was identified and the mesosalpinx coagulated and cut using the Enseal device to the level of the uterine hernia. Uterine ovarian ligament and round ligaments were clamped, coagulated and cut. The anterior broad ligament was opened and the uterine vessels also skeletonized at the right. The posterior broad ligament was transected using the Enseal device. The right bladder flap was completed. The abdomen was desufflated and attention turned to the vagina. The patient was flattened and placed into high lithotomy. A circumferential incision was made along the cervicovaginal junction using a scalpel. The posterior colpotomy was made sharply and the center R varus speculum was placed into the posterior cul-de-sac. A curved Jerome was placed anteriorly and the the vesicovaginal space was developed using sharp dissection. The uterosacral ligaments were Jazmyn clamped, cut and transfixed using 0 Vicryl. 0 Vicryl was used for all suture. The cardinal ligaments and uterine vessels were serially Jazmyn clamps, cut and suture-ligated with incorporation of next distal pedicles for future cuff suspension. The uterus however was notably bulky thus it was bivalved and the prolapsing cervical fibroid removed via torsion and the uterus was cored with decompression and the uterus and right adnexa were delivered with the attached pedunculated fundal fibroid. A suture was applied to the peritoneum. The vaginal cuff was closed along with the peritoneum utilizing serial [id number] sutures. With good hemostasis. Patient was again placed into low lithotomy. Attention was then turned to the abdomen for reinspection. Abdomen was reinsufflated and laparoscopy performed. There was some oozing from the left a dnexal pedicle that was controlled using coagulation with the Enseal device. The left distal tube and fimbria were transected from the mesosalpinx using the Enseal and removed from the abdomen. The remaining tubal segment was adhered to the sigmoid colon. The pelvis was irrigated and suctioned. The laparoscope was removed and the abdomen desufflated. Were removed. The skin was closed by the NUCLEAR MEDICINE TECHNOLOGIST using 4-0 Monocryl under my supervision. Steri-Strips and OpSite were placed over the incisional wounds. The patient was then placed into dorsal supine position, awakened, extubated and transferred to the recovery room without complication. Sponge, instrument and needle counts were correct x2. - Complications None - Admit VTE Documentation VTE Present on Admission: No VTE Mechan Device Prophylaxis: SCD's VTE Pharm Prophylaxis ordered?: No
[2019-05-30] MEDS: 0.9% Normal Saline 1,000 ML 500 ML IV (19:59)
[2019-05-30] MEDS: Lactated Ringers 1,000 ML 125 ML IV ×2 (20:14→20:34)
[2019-05-30 21:08] LABS: Hematocrit 23.3 % (37-47); Hemoglobin 7.3 g/dL (12.0-15.0); Mean Corp Hgb Conc 31.3 g/dL (32-36); Mean Corpuscular Hgb 26.2 pg (27.0-32.0); Mean Corpuscular Volume 83.5 fL (81-99); Mean Platelet Vol. 10.1 fl (6.2-12.0); Platelet Count 319 K/mm3 (150-450); RBC Distribution Width CV 14.5 % (11.6-14.6); RBC Distribution Width SD 42.4 fl (35.1-43.9); Red Blood Count 2.79 M/mm3 (4.2-5.4); White Blood Count 21.6 K/mm3 (4.4-11.0)
[2019-05-30 21:23] LABS: Fibrinogen 250 mg/dl (203-444)
[2019-05-30] MEDS: Docusate Sodium 100 MG Capsule PO (22:57)
[2019-05-30] MEDS: Famotidine 20 MG Tablet PO (22:58)
[2019-05-30] MEDS: Heparin Injection (Vial) 5,000 UNIT/ML VIAL 5000 UNIT SC (22:58)
[2019-05-31] VITALS (7 sets, daily range): BP systolic 109–138; BP diastolic 37–63; PULSE 79–93; RESP 16–18; TEMP 36.8–37.3; O2SAT 98–100
[2019-05-31] MEDS: Acetaminophen 500 MG Tablet 1000 MG PO ×2 (01:10→09:32)
[2019-05-31] MEDS: Lactated Ringers 1,000 ML 125 ML IV (03:57)
[2019-05-31 05:24] LABS: Absolute Lymphocyte Count 0.27 X10^3/uL (0.83-4.51); Absolute Neutrophil Count 14.7 X10^3/uL (2.0-7.7); Basophil# 0.02 X10^3/uL; Basophil% 0.1 % (0-1); Hematocrit 22.4 % (37-47); Lymphocyte # 0.27 X10^3/ul (4.0); Lymphocyte % 1.8 % (19-41); Mean Corp Hgb Conc 31.3 g/dL (32-36); Mean Corpuscular Volume 83.3 fL (81-99); Mean Platelet Vol. 10.4 fl (6.2-12.0); Monocyte# 0.24 X10^3/uL; Monocyte% 1.6 % (0-10); NRBC Flagged by Analyzer 0 % (0-5); Neutrophil # 14.68 X10^3/uL (2.7-7.7); Neutrophil % 96.1 % (47-70); POSITIVE DIFFERENTIAL YES; Platelet Count 305 K/mm3 (150-450); RBC Distribution Width CV 14.9 % (11.6-14.6); Red Blood Count 2.69 M/mm3 (4.2-5.4); White Blood Count 15.3 K/mm3 (4.4-11.0)
[2019-05-31 05:33] LABS: Differential Indicated SCAN CRITERIA MET
[2019-05-31 05:42] LABS: Creatinine, Serum 0.52 mg/dL (0.55-1.02); EST Glomerular Filtration Rate 133 mL/min (>60); Est Glom Filt Rate - Afr Amer 161 mL/min (>60); Estimated Creatinine Clearance 102.37 ml/min
[2019-05-31] MEDS: Heparin Injection (Vial) 5,000 UNIT/ML VIAL 5000 UNIT SC ×2 (05:53→13:26)
--- NOTE | 2019-05-31 09:13 | PCM.PN.OB ---
Patient Problems: Active and Suspected Problems (Last Updated 05/30/19 @ 14:53 by Marissa Acosta MD) Excessive and frequent menstruation with irregular cycle (Acute) Acute blood loss anemia (Acute) Uterine fibroid (Acute) Subjective: Denies nausea, lightheadedness, palpitations, chest pain or shortness of breath. No vaginal bleeding. + fatigue. She is sore. Objective: AVSS - Physical Exam General: Alert, Oriented x3, Cooperative, No apparent distress HEENT: Atraumatic, Normocephalic Lungs: Clear to auscultation, Normal air movement Cardiovascular: Regular rate, Regular Rhythm, Normal S1, Normal S2, Murmur, - - systolic murmur Abdomen: Bowel Sounds Present, Soft, Non Tender, Non-Distended, - - incisional dressings present - approx 50% at umbilical site, others c/d/i Extremities: No edema, No Calf Tenderness Neurological: Neuro grossly intact Psych/Mental Status: Normal Affect, Appropriate, Alert and oriented to time, place, person, mood and affect Vital Signs Temp Pulse Resp BP Pulse Ox 98.3 F 86 16 127/53 H 100 05/31/19 07:41 05/31/19 07:41 05/31/19 07:41 05/31/19 07:41 05/31/19 07:41 Oxygen Flow Rate (L/min) 2 Oxygen Delivery Method Room Air Weight: 93.9 kg Body Mass Index (BMI) 37.2 Intake and Output for Last 24 Hours 05/29/19 05/30/19 05/31/19 23:59 23:59 23:59 Intake Total 2110 / 2110 1216.67 / 1216.67 Output Total 50 / 50 1050 / 1050 Balance 2059 / 2059 166.67 / 166.67 Laboratory Tests Past 24 Hrs 05/30/19 05/30/19 05/30/19 11:25 11:25 11:25 WBC 10.1 RBC 2.56 L Hgb 6.3 L Hct 20.9 L MCV 81.6 MCH 24.6 L MCHC 30.1 L RDW Std Deviation 41.9 RDW Coeff of Diogenes 14.4 Plt Count 378 MPV 10.0 Immature Gran % (Auto) 0.500 Neut % (Auto) 81.0 H Lymph % (Auto) 11.2 L [place] % (Auto) 6.7 Eos % (Auto) 0.2 Baso % (Auto) 0.4 Absolute Neuts (auto) 8.2 H Absolute Lymphs (auto) 1.13 Nucleated RBC % 0 PT 14.2 INR 1.1 APTT 25.3 Fibrinogen Sodium 135 L Potassium 3.9 Chloride 105 Carbon Dioxide 22.0 Anion Gap 8 BUN 9 Creatinine 0.57 Estim Creat Clear Calc 93.39 Est GFR (MDRD) Af Amer 144 Est GFR (MDRD) Non-Af 119 BUN/Creatinine Ratio 15.7 Glucose 90 Calcium 8.4 L Urine Test Blood Type Antibody Screen Crossmatch 05/30/19 05/30/19 05/30/19 11:25 11:25 12:24 WBC RBC Hgb Hct MCV MCH MCHC RDW Std Deviation RDW Coeff of Diogenes Plt Count MPV Immature Gran % (Auto) Neut % (Auto) Lymph % (Auto) [place] % (Auto) Eos % (Auto) Baso % (Auto) Absolute Neuts (auto) Absolute Lymphs (auto) Nucleated RBC % PT INR APTT Fibrinogen Sodium Potassium Chloride Carbon Dioxide Anion Gap BUN Creatinine Estim Creat Clear Calc Est GFR (MDRD) Af Amer Est GFR (MDRD) Non-Af BUN/Creatinine Ratio Glucose Calcium Urine Test Negative Blood Type O NEGATIVE Antibody Screen NEGATIVE Crossmatch See Detail 05/30/19 05/30/19 05/31/19 21:00 21:00 04:55 WBC 21.6 H 15.3 H RBC 2.79 L 2.69 L Hgb 7.3 L 7.0 L Hct 23.3 L 22.4 L MCV 83.5 83.3 MCH 26.2 L 26.0 L MCHC 31.3 L 31.3 L RDW Std Deviation 42.4 43.0 RDW Coeff of Diogenes 14.5 14.9 H Plt Count 319 305 MPV 10.1 10.4 Immature Gran % (Auto) 0.400 Neut % (Auto) 96.1 H Lymph % (Auto) 1.8 L [place] % (Auto) 1.6 Eos % (Auto) 0.0 Baso % (Auto) 0.1 Absolute Neuts (auto) 14.7 H Absolute Lymphs (auto) 0.27 L Nucleated RBC % 0 PT INR APTT Fibrinogen 250 Sodium Potassium Chloride Carbon Dioxide Anion Gap BUN Creatinine Estim Creat Clear Calc Est GFR (MDRD) Af Amer Est GFR (MDRD) Non-Af BUN/Creatinine Ratio Glucose Calcium Urine Test Blood Type Antibody Screen Crossmatch 05/31/19 04:55 WBC RBC Hgb Hct MCV MCH MCHC RDW Std Deviation RDW Coeff of Diogenes Plt Count MPV Immature Gran % (Auto) Neut % (Auto) Lymph % (Auto) [place] % (Auto) Eos % (Auto) Baso % (Auto) Absolute Neuts (auto) Absolute Lymphs (auto) Nucleated RBC % PT INR APTT Fibrinogen Sodium Potassium Chloride Carbon Dioxide Anion Gap BUN Creatinine 0.52 L Estim Creat Clear Calc 102.37 Est GFR (MDRD) Af Amer 161 Est GFR (MDRD) Non-Af 133 BUN/Creatinine Ratio Glucose Calcium Urine Test Blood Type Antibody Screen Crossmatch Medical Necessity - Tobacco Use Smoking Status: Former smoker Tobacco Use: Non-smoker Assessment/Plan All Active Problems (Last Updated 05/30/19 @ 14:53 by Marissa Acosta MD) Excessive and frequent menstruation with irregular cycle (Acute) Acute blood loss anemia (Acute) Uterine fibroid (Acute) 49yo POD#1 s/p LAVH, 2U PRBC doing well. -Reviewed intraop findings and procedure -Routine post op care -Will consider d/c home later today if doing well. -Discussed anticipated recovery
--- NOTE | 2019-05-31 09:18 | DCINST_ITS ---
"Discharge Diet: No Restrictions Discharge Activity: Return to Normal Activity, May not drive while taking narcotic pain medications., May Shower, - - No tub bath, no driving for 7 days May resume sexual activity in: 6 weeks Lifting Restrictions: 10 lb Call your doctor if your incision/area has: Continuous Slow Oozing, Sudden Increased Bleeding, Increased Pain/ Swelling, Increased Redness Call your doctor if you observe: Fever of 101 or Higher, Inability to urinate, Inability to have a bowel movement, Using more than one pad per hour, Shortness of breath, Chest pain, Calf discomfort, Uncontrolled pain Suture Line Care: Avoid Pulling/Pushing Remove Dressing in (days):: 1 Cleanse incision/area with: Soap & Water Allergies/Adverse Reactions: Allergies meperidine [From Demerol] Allergy (Verified 05/30/19 10:48) Itching Medications to take at Discharge Acetaminophen [Tylenol] 1,000 mg PO Q8H PRN PRN tab 05/31/19 Docusate Sodium [Colace] 100 mg PO BID PRN PRN #60 cap 05/31/19 Ibuprofen [Motrin] 600 mg PO Q8H PRN PRN #30 tab 05/31/19 The following prescriptions were given: Docusate Sodium [Colace] 100 mg PO BID PRN PRN #60 cap PRN Reason: Constipation Transmission Status: Received by [facility] | [id number] Ibuprofen [Motrin] 600 mg PO Q8H PRN PRN #30 tab PRN Reason: Pain Transmission Status: Received by [id number] Primary Care Physician: Care Physician,No Primary [Primary Care Provider] - Test Results: Test results from this visit will be discussed in further detail at your follow- up appointment, if applicable. Please Follow Up With: Marissa Acosta MD When: 1 weeks"
[2019-05-31] MEDS: Docusate Sodium 100 MG Capsule PO (09:28)
[2019-05-31] MEDS: Famotidine 20 MG Tablet PO (09:28)
--- NOTE | 2019-05-31 09:39 | DCINST_ITS ---
Discharge Diet: No Restrictions Discharge Activity: Return to Normal Activity, May not drive while taking narcotic pain medications., May Shower, - - No tub bath, no driving for 7 days May resume sexual activity in: 6 weeks Call your doctor if your incision/area has: Continuous Slow Oozing, Sudden Increased Bleeding, Increased Pain/ Swelling, Increased Redness Call your doctor if you observe: Fever of 101 or Higher, Inability to urinate, Inability to have a bowel movement, Using more than one pad per hour, Shortness of breath, Chest pain, Calf discomfort, Uncontrolled pain Suture Line Care: Avoid Pulling/Pushing Remove Dressing in (days):: 1 Cleanse incision/area with: Soap & Water Allergies/Adverse Reactions: Allergies meperidine [From Demerol] Allergy (Verified 05/30/19 10:48) Itching Medications to take at Discharge Acetaminophen [Tylenol] 1,000 mg PO Q8H PRN PRN tab 05/31/19 Docusate Sodium [Colace] 100 mg PO BID PRN PRN #60 cap 05/31/19 Ferrous Sulfate 325 mg PO BID #60 tab 05/31/19 Ibuprofen [Motrin] 600 mg PO Q8H PRN PRN #30 tab 05/31/19 The following prescriptions were given: Docusate Sodium [Colace] 100 mg PO BID PRN PRN #60 cap PRN Reason: Constipation Transmission Status: Received by [id number] Ferrous Sulfate 325 mg PO BID #60 tab Transmission Status: Pending to [id number] Ibuprofen [Motrin] 600 mg PO Q8H PRN PRN #30 tab PRN Reason: Pain Transmission Status: Received by [id number] Primary Care Physician: Care Physician,No Primary [Primary Care Provider] - Test Results: Test results from this visit will be discussed in further detail at your follow- up appointment, if applicable. Please Follow Up With: Marissa Acosta MD When: 1 weeks
--- NOTE | 2019-05-31 11:30 | PCM.PN.BLA ---
Progress Note PROGRESS NOTE Notified by RN that patient with c/o inspiratory chest pain. At bedside, pt reported mild upper chest discomfort bilaterally and at midline, now moving down into the upper abdomen. No stabbing or crushing sensation, no pain in neck or arms. No flatus yet. + dyspnea on ambulation to bathroom however reports could catch her breath and talk. AVSS, patient is well appearing, in no acute distress, talking rapidly in complete sentences without using accessory muscles. RRR, systolic murmur persists with heart rate 92 on my evaluation. Lungs clear to auscultation bilateral without wheezes, rales or rhonchi and abdomen soft, nontender. Sx likely due to abdominal insufflation and/or gas. Simethicone prn gas.
[2019-05-31] MEDS: Ibuprofen 600 MG Tablet PO (13:40)
== END 2019-05-31 18:05 | disposition home or self-care (01) ==
LOC: ED 11:26 → SDC 14:09 → MS3 20:08
PROVIDERS: Admitting Provider Obstetrics & Gynecology; Emergency Provider Physician Assistant Medical; Referring Provider Obstetrics & Gynecology; Visit Provider Obstetrics & Gynecology
PROC: 0UDB8ZZ Extraction of Endometrium, Via Natural or Artificial Opening Endoscopic (ICD-10-PCS; CPT 58558; 2019-05-30 14:00)
DX: D25.0 Submucous leiomyoma of uterus (principal); D62 Acute posthemorrhagic anemia; Z87.891 Personal history of nicotine dependence; Z79.899 Other long term (current) drug therapy; R01.1 Cardiac murmur, unspecified
CPT/HCPCS: 00940; 58552; 36415; 36430; 76830; 80048; 81025; 82565; 85025; 85027; 85384; 85610; 85730; 86644; 86850; 86900; 86901; 86920; 86922; 88307; 96361; 96365; 96372; 99218; 99285; J7030; J7120; P9016; P9040; A4216; C1760; G0378; J2405